=== PATIENT | male | born 1945 | race Caucasian/White ===

== ENCOUNTER 2016-09-12 21:56 | Outpatient (CLI) | payer MEDICARE, BC | END 2016-09-12 21:57 | disposition critical access hospital (66) | DX: R40.4 Transient alteration of awareness (principal) | CPT/HCPCS: A0425; A0427 ==

== ENCOUNTER 2016-09-12 22:08 | Inpatient (IN) | payer MEDICARE, BC ==
--- NOTE | 2016-09-12 22:20 | ED Physician Documentation ---
History of Present Illness - Stated complaint Stated Complaint: LOW BLOOD SUGAR - Chief complaint Chief Complaint: General - History obtained from History obtained from: Patient, EMS - History of Present Illness Timing: Today Pain level max: 0 Pain level now: 0 - Additonal information Additional information: hypoglycemic today. States 17 blood sugar at home. Better with D50 with EMS. Takes glipizide at home. Has not been ill recently. Does have CRF (last cr was 4.2) and is being referred to nephrology. Similar episode occurred 2 weeks ago , metformin was stopped at that time Review of Systems Constitutional: denies: Fever, Chills Throat: denies: Sore throat Cardiac: denies: Chest pain / pressure GI: denies: Nausea, Vomiting, Diarrhea Skin: denies: Rash Musculoskeletal: denies: Neck pain, Back pain Neurologic: denies: Focal weakness, Numbness, Headache PD PAST MEDICAL HISTORY - Past Medical History Past Medical History: Yes Cardiovascular: Hypertension, High cholesterol, Atrial fibrillation Respiratory: Shortness of breath Endocrine/Autoimmune: Type 2 diabetes Other Past Medical History: elevated creatinine 4.2 - Past Surgical History Past Surgical History: Yes Ortho: Arthroscopic surgery - Present Medications Home Medications: Ambulatory Orders Medication Instructions Recorded Confirmed Allopurinol 300 mg DAILY 09/12/16 09/12/16 Atenolol 100 mg DAILY 09/12/16 09/12/16 Atorvastatin [Lipitor] 40 mg DAILY 09/12/16 09/12/16 Digoxin 250 mcg DAILY 09/12/16 09/12/16 Furosemide 80 mg DAILY 09/12/16 09/12/16 Glipizide [Glipizide ER] 5 mg DAILY 09/12/16 09/12/16 Levothyroxine Sodium [Synthroid] 50 mcg DAILY 09/12/16 09/12/16 Liothyronine [Cytomel] 5 mcg DAILY 09/12/16 09/12/16 Lisinopril 5 mg DAILY 09/12/16 09/12/16 Potassium Chloride 20 meq DAILY 09/12/16 09/12/16 Warfarin [Coumadin] 5 mg DAILY 09/12/16 09/12/16 - Allergies Allergies/Adverse Reactions: Allergies Allergy/AdvReac Type Severity Reaction Status Date / Time No Known Drug Allergies Allergy Verified 09/12/16 22:12 - Social History Does the pt smoke?: No Smoking Status: Never smoker Does the pt drink ETOH?: Yes Does the pt have substance abuse?: No PD ED PE NORMAL - Vitals Vital signs reviewed: Yes - General General: Alert and oriented X 3, No acute distress - HEENT HEENT: Moist mucous membranes - Neck Neck: Supple, no meningeal sign - Cardiac Cardiac: RRR - Respiratory Respiratory: No respiratory distress, Clear bilaterally - Abdomen Abdomen: Soft, Non tender - Back Back: No spinal TTP - Derm Derm: Warm and dry - Neuro Neuro: Alert and oriented X 3, oncology social worker 2-12 intact, No motor deficit, No sensory deficit, Normal speech - Psych Psych: Normal mood, Normal affect Results - Vitals Vitals: Vital Signs - 24 hr 09/12/16 09/12/16 22:09 23:09 Temperature 36.4 C L Heart Rate 89 62 Respiratory 18 16 Rate Blood Pressure 128/72 132/72 H O2 Saturation 98 98 Oxygen O2 Source Room air - Labs Labs: Laboratory Tests 09/12/16 09/12/16 09/12/16 22:14 22:40 22:40 WBC 7.7 RBC 3.02 L Hgb 9.8 L Hct 29.8 L MCV 98.5 H MCH 32.4 H MCHC 32.8 RDW 16.2 H Plt Count 177 MPV 10.5 Neut # 5.6 Lymph # 1.3 L [place] # 0.6 Eos # 0.1 Baso # 0.1 Absolute Nucleated RBC 0.01 Nucleated RBCs 0.1 PT 47.6 H INR 4.2 H Sodium Potassium Chloride Carbon Dioxide Anion Gap BUN Creatinine Estimated GFR (MDRD) Glucose POC Whole Bld Glucose 97 Calcium Total Bilirubin AST ALT Alkaline Phosphatase Total Protein Albumin Globulin Albumin/Globulin Ratio Lipase Urine Color Urine Clarity Urine pH Ur Specific [place] Urine Protein Urine Glucose (UA) Urine Ketones Urine Occult Blood Urine Nitrite Urine Bilirubin Urine Urobilinogen Ur Leukocyte Esterase Ur Microscopic Review Urine Culture Comments Last Dose Date Last Dose Time Digoxin Ethyl Alcohol 09/12/16 09/12/16 09/12/16 22:40 22:40 23:29 WBC RBC Hgb Hct MCV MCH MCHC RDW Plt Count MPV Neut # Lymph # [place] # Eos # Baso # Absolute Nucleated RBC Nucleated RBCs PT INR Sodium 136 Potassium 5.3 H Chloride 103 Carbon Dioxide 22 Anion Gap 11.0 BUN 89 H* Creatinine 3.0 H Estimated GFR (MDRD) 21 L Glucose 62 L POC Whole Bld Glucose 20 L* Calcium 8.8 Total Bilirubin 0.4 AST 24 ALT 25 Alkaline Phosphatase 179 H Total Protein 7.5 Albumin 3.6 Globulin 3.9 Albumin/Globulin Ratio 0.9 L Lipase 76 H Urine Color Urine Clarity Urine pH Ur Specific [place] Urine Protein Urine Glucose (UA) Urine Ketones Urine Occult Blood Urine Nitrite Urine Bilirubin Urine Urobilinogen Ur Leukocyte Esterase Ur Microscopic Review Urine Culture Comments Last Dose Date UNK Last Dose Time UNK Digoxin 1.1 Ethyl Alcohol 77.0 09/12/16 09/12/16 23:42 23:47 WBC RBC Hgb Hct MCV MCH MCHC RDW Plt Count MPV Neut # Lymph # [place] # Eos # Baso # Absolute Nucleated RBC Nucleated RBCs PT INR Sodium Potassium Chloride Carbon Dioxide Anion Gap BUN Creatinine Estimated GFR (MDRD) Glucose POC Whole Bld Glucose 113 H Calcium Total Bilirubin AST ALT Alkaline Phosphatase Total Protein Albumin Globulin Albumin/Globulin Ratio Lipase Urine Color YELLOW Urine Clarity CLEAR Urine pH 5.5 Ur Specific [place] 1.010 Urine Protein NEGATIVE Urine Glucose (UA) NEGATIVE Urine Ketones NEGATIVE Urine Occult Blood NEGATIVE Urine Nitrite NEGATIVE Urine Bilirubin NEGATIVE Urine Urobilinogen 0.2 (NORMAL) Ur Leukocyte Esterase NEGATIVE Ur Microscopic Review NOT INDICATED Urine Culture Comments NOT INDICATED Last Dose Date Last Dose Time Digoxin Ethyl Alcohol PD MEDICAL DECISION MAKING - ED course Complexity details: reviewed results, re-evaluated patient, considered differential, d/w patient, d/w outbound sales consultant ED course: Patient is a 71-year-old male who presents to the emergency department after being hypoglycemic earlier today. He had recurrent hypoglycemia here despite eating and had to have another amp of D50. D5 was then started as D10 was not available. Will place the patient in observation overnight for further evaluation and monitoring of his blood sugar. Discussed the case with Dr. Downing, hospitalist who accepts. This document was made in part using voice recognition software. While efforts are made to proofread this document, sound alike and grammatical errors may occur. Departure - Departure Disposition: ED Place in Observation Clinical Impression: Hypoglycemia Alcohol intoxication Qualifiers: Complication of substance-induced condition: uncomplicated Qualified Code(s): F10.120 - Alcohol abuse with intoxication, uncomplicated Condition: Stable Discharge Date/Time: 09/13/16 00:25
[2016-09-12 22:50] LABS: BASOPHILS # (AUTO) 0.1 10^3/uL (0.0-0.1); BASOPHILS % (AUTO) 1.8 %; EOSINOPHILS # (AUTO) 0.1 10^3/uL (0.0-0.7); EOSINOPHILS % (AUTO) 1.5 %; HCT - HEMATOCRIT 29.8 % (42.0-52.0); HGB - HEMOGLOBIN 9.8 g/dL (14.0-18.0); LYMPHOCYTES # (AUTO) 1.3 10^3/uL (1.5-3.5); LYMPHOCYTES % (AUTO) 16.2 %; MEAN CORPUSCULAR HEMOGLOBIN 32.4 pg (27.0-31.0); MEAN CORPUSCULAR HGB CONC 32.8 g/dL (32.0-36.0); MEAN CORPUSCULAR VOLUME 98.5 fL (80.0-94.0); MEAN PLATELET VOLUME 10.5 fL (7.4-11.4); MONOCYTES # (AUTO) 0.6 10^3/uL (0.0-1.0); MONOCYTES % (AUTO) 7.9 %; NEUTROPHILS # (AUTO) 5.6 10^3/uL (1.5-6.6); NEUTROPHILS % (AUTO) 72.6 %; NUCLEATED RED BLOOD CELLS AUTO 0.1 /100WBC; RED BLOOD COUNT 3.02 10^6/uL (4.70-6.10); RED CELL DISTRIBUTION WIDTH 16.2 % (12.0-15.0); UNCORRECTED WHITE BLOOD COUNT 7.7 x10^3/uL; WHITE BLOOD COUNT 7.7 x10^3/uL (4.8-10.8)
[2016-09-12 22:58] LABS: INR 4.2 (0.8-1.2); PT - PROTHROMBIN TIME 47.6 secs (9.9-12.6)
[2016-09-12 23:08] LABS: ALBUMIN/GLOBULIN RATIO 0.9 (1.0-2.2); BILIRUBIN,TOTAL 0.4 mg/dL (0.2-1.0); CALCIUM 8.8 mg/dL (8.5-10.3); CARBON DIOXIDE - CO2 22 mmol/L (21-32); CHLORIDE 103 mmol/L (101-111); GFR - MDRD 21 (>89); GLUCOSE 62 mg/dL (70-100); LIPASE 76 U/L (22-51); POTASSIUM 5.3 mmol/L (3.5-5.0); SODIUM 136 mmol/L (135-145); TOTAL PROTEIN 7.5 g/dL (6.7-8.2)
[2016-09-12] MEDS ORDERED: DEXTROSE 5%-0.45% NACL 1,000 ML IV ONE (23:30)
[2016-09-12] MEDS ORDERED: DEXTROSE 50% ABBOJECT 25 GM/50 ML SYRINGE ONE (23:30)
[2016-09-12] MEDS ORDERED: DEXTROSE 50% ABBOJECT 25 GM/50 ML SYRINGE IVP STA (23:30)
[2016-09-12 23:56] LABS: BILIRUBIN,URINE NEGATIVE (NEGATIVE); PH,URINE 5.5 PH (5.0-7.5)
[2016-09-12 23:58] LABS: UA CHARGE (STRIP ONLY) YES; UR CULTURE IF IND NOT INDICATED
[2016-09-13] MEDS ORDERED: ACETAMINOPHEN 325 MG TABLET PO PRN (00:07)
[2016-09-13] MEDS ORDERED: SODIUM CHLORIDE FLUSH 0.9% 10 ML SYRINGE IVP PRN (00:07)
[2016-09-13] MEDS ORDERED: THIAMINE 100 MG TABLET PO STA ×2 (00:27→03:34)
[2016-09-13] MEDS ORDERED: FOLIC ACID 1 MG TABLET PO SCH (01:00)
[2016-09-13] MEDS ORDERED: DEXTROSE 10% 1,000 ML IV SCH ×2 (01:00→05:29)
[2016-09-13] MEDS ORDERED: DEXTROSE 5%-0.9% NACL 1,000 ML IV SCH (01:00)
--- NOTE | 2016-09-13 01:42 | XRAY Preliminary Report ---
Exam: XR Chest 2 View PA/LAT IMPRESSION: Small right pleural effusion. Right lower lobe opacities which may be secondary to atelec tasis and/or superimposed airspace disease. [facility] SITE ID: [id number]
--- NOTE | 2016-09-13 01:44 | XRAY Report ---
EXAM: CHEST RADIOGRAPHY EXAM DATE: 09/13/2016 12:53 AM. CLINICAL HISTORY: [place]. COMPARISON: None. TECHNIQUE: 2 views. FINDINGS: Lungs/Pleura: Small right pleural effusion. Ill-defined airspace opacities at the right lung base. Th e left lung is clear. No pneumothorax.. Mediastinum: Heart and mediastinal contours are unremarkable. Other: None. IMPRESSION: Small right pleural effusion. Right lower lobe opacities which may be secondary to atelec tasis and/or superimposed airspace disease. [facility] Referring Provider Line: [phone] SITE ID: [id number]
--- NOTE | 2016-09-13 04:43 | HISTORY & PHYSICAL EXAMINATION ---
DATE OF OBSERVATION: 09/13/2016. PRIMARY CARE PHYSICIAN: Dr. Esteban Romero, [facility]. CHIEF COMPLAINT: Significantly low blood sugar. HISTORY OF PRESENT ILLNESS: This is a 71-year-old male who has a history of type 2 diabetes. Of note, he was found to have subacute renal failure, is to see Nephrology later in September for further evaluation. The patient denies having a renal ultrasound or other evaluation for this. The last creatinine was noted to be 4.2, that was a few weeks ago. He also had an episode about 2 weeks ago while he was visiting in [place] of low blood sugar. Was seen in the emergency room. Eventually blood sugar came up and he was sent home. His primary care provider about a week ago stopped his metformin because of this, but kept him the glipizide. The patient had a blood sugar today of 17 and EMS was notified and brought in. He was continuing to have in spite of multiple meals and D50, dropping of blood sugar. Hence, the patient is admitted to observation status. The patient does have a history of chronic atrial fibrillation, for which he is on warfarin therapy. He also does note that over the past 2 months or so, he has been a little bit more short of breath with a little bit more lower extremity swelling noted. PAST MEDICAL HISTORY: Hypertension, hyperlipidemia, chronic atrial fibrillation for which he is on warfarin therapy, subacute renal insufficiency, unclear etiology, history of type 2 diabetes, history of arthroscopic surgery, history of gout. MEDICATIONS UPON ADMISSION 1. Lasix 80 mg p.o. daily. 2. Glipizide 5 mg p.o. daily. 3. Lisinopril 5 mg p.o. daily. 4. KCl 20 mEq p.o. daily. 5. Warfarin 5 mg p.o. daily. 6. Allopurinol 300 mg p.o. daily. 7. Atenolol 100 mg p.o. daily. 8. Atorvastatin 40 mg p.o. daily. 9. Digoxin 250 mcg p.o. daily. 10. Levothyroxine 50 mcg p.o. daily. 11. Liothyronine 5 mcg p.o. daily. ALLERGIES: NO KNOWN DRUG ALLERGIES. SOCIAL HISTORY: Lives in , lives in [place], but spends part his time on [facility] where he has a house also. Smoking, never. Alcohol, yes, 3-4 drinks daily for many years. FAMILY MEDICAL HISTORY: No family history of diabetes or coronary artery disease. REVIEW OF SYSTEMS: Denies fevers, chills. Denies cough. Does admit to some shortness of breath. Denies any chest pain. All other review of systems are negative except for as in HPI. PHYSICAL EXAMINATION VITAL SIGNS: Reveals temperature is afebrile, heart rate is 62, blood pressure 132/72, respiratory rate is 16, room air saturation 98%. CONSTITUTIONAL: Elderly male in no acute distress, morbidly obese. HEAD: Normocephalic, atraumatic. EYES: PERRLA-DC, EOMI. MOUTH: No lesions. NECK: No adenopathy. No lesions. CHEST: Some crackles at his bases. COR: Regular rate and rhythm, S1, S2. ABDOMEN: Soft, nontender. Bowel sounds present. EXTREMITIES: Reveals 1+ lower extremity edema. SKIN: Reveals some bilateral lower extremity stasis dermatitis changes, otherwise no rashes. PSYCHIATRIC: Mood and affect are appropriate. NEUROLOGIC: Alert and oriented x3. Motor strength is intact bilaterally. LABORATORY DATA: As above, also to include Digoxin level 1.1. Alcohol level 77.0. Urine is specific gravity 1.010, otherwise negative. Sodium is 136, potassium 5.3, chloride 103, bicarbonate 22, anion gap 11, BUN 89, creatinine 3.0, calculated GFR is 21, glucose is 62, dropped down to 20, calcium 8.8, total bilirubin 0.4, AST 24, ALT 25, alkaline phosphatase 179, total protein 7.5 , albumin 3.6, lipase 76, INR is 4.2. White count 7.7, hemoglobin 9.8, hematocrit 29.8, MCV 98.5. Platelets 177, 5.6 neutrophils. Two-view chest x-ray is pending. EKG is pending. ASSESSMENT AND PLAN 1. Hypoglycemia, acute, present on admission. We will go ahead and discontinue his glipizide and start IV D5 normal saline along with D10 and check glucoses q.2h. and adjust accordingly. Most likely due to his renal failure and glipizide therapy, he is dropping his blood sugars. 2. Subacute renal failure, present on admission. UA is negative. We will go ahead and check renal ultrasound to further elucidate. We will also hold his Lasix for now, along with his lisinopril and give some IV fluid hydration and recheck labs in the a.m. 3. ETOH dependence, chronic, present on admission. We will go ahead and replete with multiple vitamins, thiamine and folic acid. Monitor for signs and symptoms of alcohol withdrawal. Counseled regarding cessation of alcohol. 4. Chronic atrial fibrillation, chronic, present on admission. Place on telemetry. Monitor rate and rhythm. Check EKG. We will hold Coumadin as INR is supratherapeutic at this point. Will recheck it in a.m. 5. Hypothyroidism, chronic, present on admission. Check TSH, free T4, free T3. 6. Hypertension, chronic, present on admission. Monitor blood pressures. May need to replace lisinopril with alternative. 7. Anemia, present on admission. Guaiac stools. Check iron, vitamin B12, folate levels. May be secondary to renal insufficiency. 8. Deep venous thrombosis prophylaxis. The patient is on therapeutic Coumadin. 9. Code status. The patient is FULL CODE. TIME SPENT: 60 minutes. JOB #: [id number] EXT JOB #:[id number] ROSSANA
[2016-09-13 05:55] LABS: BUN - BLOOD UREA NITROGEN 89 mg/dL (6-20)
[2016-09-13 06:10] LABS: BASOPHILS % (AUTO) 0.5 %; EOSINOPHILS # (AUTO) 0.1 10^3/uL (0.0-0.7); EOSINOPHILS % (AUTO) 2.1 %; HCT - HEMATOCRIT 26.9 % (42.0-52.0); LYMPHOCYTES # (AUTO) 1.3 10^3/uL (1.5-3.5); LYMPHOCYTES % (AUTO) 20.6 %; MEAN CORPUSCULAR HEMOGLOBIN 32.5 pg (27.0-31.0); MEAN CORPUSCULAR HGB CONC 33.4 g/dL (32.0-36.0); MEAN CORPUSCULAR VOLUME 97.2 fL (80.0-94.0); MEAN PLATELET VOLUME 10.5 fL (7.4-11.4); MONOCYTES # (AUTO) 0.7 10^3/uL (0.0-1.0); MONOCYTES % (AUTO) 10.6 %; NEUTROPHILS # (AUTO) 4.3 10^3/uL (1.5-6.6); NEUTROPHILS % (AUTO) 66.2 %; RED BLOOD COUNT 2.77 10^6/uL (4.70-6.10); RED CELL DISTRIBUTION WIDTH 15.9 % (12.0-15.0); UNCORRECTED WHITE BLOOD COUNT 6.5 x10^3/uL; WHITE BLOOD COUNT 6.5 x10^3/uL (4.8-10.8)
[2016-09-13 06:15] LABS: INR 4.1 (0.8-1.2); PT - PROTHROMBIN TIME 47.1 secs (9.9-12.6)
[2016-09-13 06:23] LABS: CALCIUM 8.4 mg/dL (8.5-10.3); CREATININE 2.7 mg/dL (0.6-1.2); POTASSIUM 5.5 mmol/L (3.5-5.0)
[2016-09-13 06:24] LABS: IRON 46 ug/dL (45-182); TOTAL IRON BINDING CAPACITY 399 ug/dL (250-450); TRANSFERRIN 285 mg/dL (180-329)
[2016-09-13 06:51] LABS: FOLATE 16.17 ng/mL (5.90 - >24.8)
[2016-09-13] MEDS ORDERED: CYANOCOBALAMIN 1,000 MCG/ML VIAL IM ONE ×2 (07:03→10:30)
[2016-09-13] MEDS ORDERED: LORazepam 2 MG/ML SYRINGE IVP PRN (07:05)
[2016-09-13 07:24] LABS: CHOL/HDL RATIO 2.5 (<5.0); CHOLESTEROL 102 mg/dL; HDL CHOLESTEROL 41 mg/dL; LDL/HDL RATIO 1.2 (<3.6); TRIGLYCERIDES 63 mg/dL; VLDL CHOLESTEROL 13 mg/dL
[2016-09-13 07:35] LABS: MAGNESIUM 2.4 mg/dL (1.7-2.8); PHOSPHORUS 4.3 mg/dL (2.5-4.6)
[2016-09-13] MEDS ORDERED: MULTIVITAMIN W/MINERALS TABLET PO SCH (08:00)
[2016-09-13] MEDS: SODIUM CHLORIDE FLUSH 0.9% 10 ML SYRINGE IVP SCH ×3 (08:01→20:37)
[2016-09-13 08:05] LABS: BILIRUBIN,URINE NEGATIVE (NEGATIVE)
[2016-09-13 08:08] LABS: UA CHARGE (STRIP ONLY) YES
[2016-09-13] MEDS ORDERED: NON FORMULARY MED (Atenolol [Atenolol] 100 MG) PO SCH (09:00)
[2016-09-13] MEDS ORDERED: DIGOXIN 250 MCG PO SCH (09:00)
[2016-09-13] MEDS ORDERED: DIGOXIN 125 MCG TABLET PO SCH (09:00)
[2016-09-13] MEDS ORDERED: NON FORMULARY MED (Allopurinol [Allopurinol] 300 MG) PO SCH (09:00)
[2016-09-13] MEDS ORDERED: NON FORMULARY MED (Levothyroxine Sodium [Synthroid] 50 MCG) PO SCH (09:00)
[2016-09-13] MEDS ORDERED: ALLOPURINOL 100 MG TABLET PO SCH (09:00)
[2016-09-13] MEDS ORDERED: ATORVASTATIN 40 MG TABLET PO SCH (09:00)
[2016-09-13] MEDS ORDERED: MULTIVITAMIN 10 ML, THIAMINE INJ 100 MG, FOLIC ACID INJ 1 MG in D5.45NS W/20 MEQ KCL 1,... IV SCH (09:00)
[2016-09-13] MEDS ORDERED: THIAMINE 100 MG TABLET PO SCH (09:00)
[2016-09-13] MEDS: POLYETHYLENE GLYCOL 3350 17 GM PACKET PO SCH (09:24)
[2016-09-13] MEDS: LEVOTHYROXINE 25 MCG TABLET PO SCH (09:56)
[2016-09-13] MEDS: LIOTHYRONINE 5 MCG TABLET PO SCH (09:56)
[2016-09-13] MEDS: ATENOLOL 25 MG TABLET PO SCH (09:56)
[2016-09-13] MEDS ORDERED: MULTIVITAMIN 10 ML, THIAMINE INJ 100 MG, FOLIC ACID INJ 1 MG in SODIUM CHLORIDE 0.9% 1,... IV SCH (10:00)
--- NOTE | 2016-09-13 10:26 | Ultrasound Preliminary Report ---
Exam: US Retroperitoneal IMPRESSION: No hydronephrosis [facility] SITE ID: [id number]
--- NOTE | 2016-09-13 10:29 | Ultrasound Report ---
EXAM: RENAL ULTRASOUND EXAM DATE: 09/13/2016 09:25 AM. CLINICAL HISTORY: Kidney failure with poss obstruction. COMPARISON: None. TECHNIQUE: Real-time scanning was performed with static images obtained. FINDINGS: Right Kidney: 12.5 cm. Normal echotexture with no stones, contour-deforming masses, or hydronephrosi s. Left Kidney: 11.8 cm. Normal echotexture with no stones, suspicious contour-deforming masses, or hydr onephrosis. Upper pole 1.5 x 1.4 x 1.4 cm cyst. Bladder: Bilateral jets seen. The prevoid bladder volume was 453 cc. Prostate is mildly prominent measuring 4.3 x 3.9 x 4.2 cm with volume of 36.8 cc with some calcificat ions within it. IMPRESSION: No hydronephrosis [facility] Referring Provider Line: [phone] SITE ID: [id number]
--- NOTE | 2016-09-13 10:31 | PROVIDER PROGRESS NOTE ---
Assessment/Plan - Problem List (1) Acute kidney injury superimposed on chronic kidney disease Assessment/Plan: acute. improving with CKD stage 3. GFR is now <30. has mild dehydration probably related to alcohol abuse and outside in the sun and not drinking adequate fluids. has good output now. creatinine improving. checking CPK and renal ultrasound shows no obstruction or hydronephrosis. (2) Alcohol abuse with alcohol-induced disorder Assessment/Plan: improving. patient drinks approx 4 drinks nightly of whiskey and coke. He was outside drinking yesterday and became dehydrated and SHAWN. continue with IVF NS hydration and Banana bag IV x 1. monitor kidney function and check for rhabdomyosis with CKMB. monitor output. pending renal ultrasound. provide alcohol cessation education. CIWA protocol with ativan IV. seizure precautions (3) Acute hyperkalemia Assessment/Plan: acute. probable to dehydration and alcohol usage. IVF for gentle hydration and rule out rhabdo. has CKD. continue to monitor kidney function and recheck potassium level Q12 and in morning lab draw. Patient is on digoxin as well. - Current Meds Current Meds: Current Medications Generic Name Dose Route Start Last Admin Trade Name Eribertoq PRN Reason Stop Dose Admin Atenolol 100 mg 09/13/16 09:00 09/13/16 09:56 Tenormin PO 100 mg DAILY ALICIA Administration Cyanocobalamin 1,000 mcg 09/13/16 10:30 09/13/16 09:57 Vitamin B-12 IM 09/13/16 10:31 1,000 mcg ONCE ONE Administration Digoxin 250 mcg 09/13/16 09:00 09/13/16 09:56 Lanoxin PO 250 mcg DAILY ALICIA Administration Multivitamins 10 ml/ Thiamine 1,011.2 mls @ 100 mls/hr 09/13/16 10:00 09/13/16 09:57 HCl 100 mg/ Folic Acid 1 mg/ IV 100 mls/hr Sodium Chloride DAILY ALICIA Administration Levothyroxine Sodium 50 mcg 09/13/16 07:00 09/13/16 09:56 Synthroid PO 50 mcg QDAC ALICIA Administration Liothyronine Sodium 5 mcg 09/13/16 07:00 09/13/16 09:56 Cytomel PO 5 mcg QDAC ALICIA Administration Polyethylene Glycol 17 gm 09/13/16 09:00 09/13/16 09:24 Miralax PO Not Given DAILY ALICIA Sodium Chloride 10 ml 09/13/16 06:00 09/13/16 08:01 Normal Saline Flush 0.9% IVP Not Given Q8HR ALICIA - Lab Result Lab results reviewed: Yes Fish Bone Diagrams: 09/13/16 05:35 09/13/16 05:35 Other Lab Results: Abnormal Lab Results 09/12/16 09/12/16 09/12/16 22:40 22:40 22:40 RBC 3.02 10^6/uL L 10^6/uL (4.70-6.10) Hgb 9.8 g/dL L g/dL (14.0-18.0) Hct 29.8 % L % (42.0-52.0) MCV 98.5 fL H fL (80.0-94.0) MCH 32.4 pg H pg (27.0-31.0) RDW 16.2 % H % (12.0-15.0) Lymph # 1.3 10^3/uL L 10^3/uL (1.5-3.5) PT 47.6 secs H secs (9.9-12.6) INR 4.2 H (0.8-1.2) Potassium 5.3 mmol/L H mmol/L (3.5-5.0) BUN 89 mg/dL H* mg/dL (6-20) Creatinine 3.0 mg/dL H mg/dL (0.6-1.2) Estimated GFR (MDRD) 21 L (>89) Glucose 62 mg/dL L mg/dL (70-100) POC Whole Bld Glucose Calcium % Saturation Alkaline Phosphatase 179 IU/L H IU/L (42-121) B-Natriuretic Peptide Albumin/Globulin Ratio 0.9 L (1.0-2.2) HDL Cholesterol Lipase 76 U/L H U/L (22-51) 09/12/16 09/12/16 09/13/16 23:29 23:47 03:20 RBC Hgb Hct MCV MCH RDW Lymph # PT INR Potassium BUN Creatinine Estimated GFR (MDRD) Glucose POC Whole Bld Glucose 20 mg/dL L* mg/dL 113 mg/dL H mg/dL 164 mg/dL H mg/dL (70 - 100) (70 - 100) (70 - 100) Calcium % Saturation Alkaline Phosphatase B-Natriuretic Peptide Albumin/Globulin Ratio HDL Cholesterol Lipase 09/13/16 09/13/16 09/13/16 05:35 05:35 05:35 RBC 2.77 10^6/uL L 10^6/uL (4.70-6.10) Hgb 9.0 g/dL L g/dL (14.0-18.0) Hct 26.9 % L % (42.0-52.0) MCV 97.2 fL H fL (80.0-94.0) MCH 32.5 pg H pg (27.0-31.0) RDW 15.9 % H % (12.0-15.0) Lymph # 1.3 10^3/uL L 10^3/uL (1.5-3.5) PT 47.1 secs H secs (9.9-12.6) INR 4.1 H (0.8-1.2) Potassium 5.5 mmol/L H mmol/L (3.5-5.0) BUN 87 mg/dL H* mg/dL (6-20) Creatinine 2.7 mg/dL H mg/dL (0.6-1.2) Estimated GFR (MDRD) 23 L (>89) Glucose 183 mg/dL H mg/dL (70-100) POC Whole Bld Glucose Calcium 8.4 mg/dL L mg/dL (8.5-10.3) % Saturation Alkaline Phosphatase B-Natriuretic Peptide Albumin/Globulin Ratio HDL Cholesterol Lipase 09/13/16 09/13/16 09/13/16 05:35 05:35 05:35 RBC Hgb Hct MCV MCH RDW Lymph # PT INR Potassium BUN Creatinine Estimated GFR (MDRD) Glucose POC Whole Bld Glucose Calcium % Saturation 12 % L % (20-50) Alkaline Phosphatase B-Natriuretic Peptide 129 pg/mL H pg/mL (5-100) Albumin/Globulin Ratio HDL Cholesterol 41 mg/dL L mg/dL (60 - ) Lipase 09/13/16 09/13/16 05:41 07:05 RBC Hgb Hct MCV MCH RDW Lymph # PT INR Potassium BUN Creatinine Estimated GFR (MDRD) Glucose POC Whole Bld Glucose 166 mg/dL H mg/dL 170 mg/dL H mg/dL (70 - 100) (70 - 100) Calcium % Saturation Alkaline Phosphatase B-Natriuretic Peptide Albumin/Globulin Ratio HDL Cholesterol Lipase - EKG Results EKG Interpreted Independently: No - Diagnostic Imaging Results Diagnostic Imaging Results: positive: Prelim report reviewed Diagnostic Imaging Results Comments: Retroperitoneal Ultrasound Impression: Echo: Impression - Additional Planning Condition/Complexity: Stable My Orders: My Active Orders 09/13/16 08:42 Retroperitoneal [US] Stat 09/13/16 10:00 Multivitamin [Infuvite] 10 ml Thiamine Inj [Vitamin B-1 Inj] 100 mg Folic Acid Inj 1 mg Sodium Chloride 0.9% [Normal Saline 0.9%] 1,000 ml IV DAILY 09/13/16 10:22 CKMB [CREATINE KINASE MB] [IAI] Stat 09/13/16 10:30 Cyanocobalamin [Vitamin B-12] 1,000 mcg IM ONCE ONE 09/13/16 11:00 Sodium Chloride 0.9% [Normal Saline 0.9%] 1,000 ml IV 83.333 mls/hr 09/13/16 17:00 POTASSIUM [CHEM] Timed 09/13/16 Lunch Carb-controlled Diet [DIET] Plan Discussed with:: Patient, Case Management Time Spent: 31-60 minutes Subjective - Subjective Patient Reports: Resting Comfortably, No Complaints, Shortness of Breath Nursing Reports: No Complaints (only with exertion) Objective I&O (Last 24 Hrs): Intake and Output Totals x24h 09/11/16 09/12/16 09/13/16 23:59 23:59 23:59 Intake Total 1188 Output Total 500 Balance 688 General: Alert, Oriented x3, Cooperative, No acute distress HEENT: PERRLA Neck: Supple, No JVD Neuro: Alert, CN 2-12 Grossly Intact, Oriented Times 3 Cardiovascular: Normal S1, Normal S2, No murmurs Respiratory: No respiratory distress, Breath sounds nml Abdomen: Normal bowel sounds, No masses, Other (obese) Rectal: Stool - Heme NEG Extremities: No clubbing, No cyanosis, No edema, Normal pulses Skin: No rashes, No breakdown, No significant lesion Comments/Notes: darkened with bronze appearance after being in sun - Results Results: Laboratory Results WBC 6.5 x10^3/uL (4.8-10.8) 09/13/16 05:35 RBC 2.77 10^6/uL (4.70-6.10) L 09/13/16 05:35 Hgb 9.0 g/dL (14.0-18.0) L 09/13/16 05:35 Hct 26.9 % (42.0-52.0) L 09/13/16 05:35 MCV 97.2 fL (80.0-94.0) H 09/13/16 05:35 MCH 32.5 pg (27.0-31.0) H 09/13/16 05:35 MCHC 33.4 g/dL (32.0-36.0) 09/13/16 05:35 RDW 15.9 % (12.0-15.0) H 09/13/16 05:35 Plt Count 153 10^3/uL (130-450) 09/13/16 05:35 MPV 10.5 fL (7.4-11.4) 09/13/16 05:35 Neut # 4.3 10^3/uL (1.5-6.6) 09/13/16 05:35 Lymph # 1.3 10^3/uL (1.5-3.5) L 09/13/16 05:35 [place] # 0.7 10^3/uL (0.0-1.0) 09/13/16 05:35 Eos # 0.1 10^3/uL (0.0-0.7) 09/13/16 05:35 Baso # 0.0 10^3/uL (0.0-0.1) 09/13/16 05:35 Absolute Nucleated RBC 0.00 x10^3/uL 09/13/16 05:35 Nucleated RBCs 0.0 /100WBC 09/13/16 05:35 PT 47.1 secs (9.9-12.6) H 09/13/16 05:35 INR 4.1 (0.8-1.2) H 09/13/16 05:35 Sodium 135 mmol/L (135-145) 09/13/16 05:35 Potassium 5.5 mmol/L (3.5-5.0) H 09/13/16 05:35 Chloride 106 mmol/L (101-111) 09/13/16 05:35 Carbon Dioxide 22 mmol/L (21-32) 09/13/16 05:35 Anion Gap 7.0 (6-13) 09/13/16 05:35 BUN 87 mg/dL (6-20) H* 09/13/16 05:35 Creatinine 2.7 mg/dL (0.6-1.2) H 09/13/16 05:35 Estimated GFR (MDRD) 23 (>89) L 09/13/16 05:35 Glucose 183 mg/dL (70-100) H 09/13/16 05:35 POC Whole Bld Glucose 170 mg/dL (70 - 100) H 09/13/16 07:05 Calcium 8.4 mg/dL (8.5-10.3) L 09/13/16 05:35 Phosphorus 4.3 mg/dL (2.5-4.6) 09/13/16 05:35 Magnesium 2.4 mg/dL (1.7-2.8) 09/13/16 05:35 Iron 46 ug/dL (45-182) 09/13/16 05:35 TIBC 399 ug/dL (250-450) 09/13/16 05:35 % Saturation 12 % (20-50) L 09/13/16 05:35 Transferrin 285 mg/dL (180-329) 09/13/16 05:35 Total Bilirubin 0.4 mg/dL (0.2-1.0) 09/12/16 22:40 AST 24 IU/L (10-42) 09/12/16 22:40 ALT 25 IU/L (10-60) 09/12/16 22:40 Alkaline Phosphatase 179 IU/L (42-121) H 09/12/16 22:40 B-Natriuretic Peptide 129 pg/mL (5-100) H 09/13/16 05:35 Total Protein 7.5 g/dL (6.7-8.2) 09/12/16 22:40 Albumin 3.6 g/dL (3.2-5.5) 09/12/16 22:40 Globulin 3.9 g/dL (2.1-4.2) 09/12/16 22:40 Albumin/Globulin Ratio 0.9 (1.0-2.2) L 09/12/16 22:40 Triglycerides 63 mg/dL (-149) 09/13/16 05:35 Cholesterol 102 mg/dL (-199) 09/13/16 05:35 LDL Cholesterol, Calc 48 mg/dL (-129) 09/13/16 05:35 VLDL Cholesterol 13 mg/dL 09/13/16 05:35 HDL Cholesterol 41 mg/dL (60-) L 09/13/16 05:35 LDL/HDL Ratio 1.2 (<3.6) 09/13/16 05:35 Cholesterol/HDL Ratio 2.5 (<5.0) 09/13/16 05:35 Lipase 76 U/L (22-51) H 09/12/16 22:40 Vitamin B12 323 pg/mL (180-914) 09/13/16 05:35 Folate 16.17 ng/mL (5.90 - >24.8) 09/13/16 05:35 TSH 1.00 uIU/mL (0.34-5.60) 09/13/16 05:35 Free T4 0.73 ng/dL (0.58-1.64) 09/13/16 05:35 Free T3 pg/mL 2.82 pg/mL (2.5-3.9) 09/13/16 05:35 Urine Color YELLOW 09/13/16 07:45 Urine Clarity CLEAR (CLEAR) 09/13/16 07:45 Urine pH 6.0 PH (5.0-7.5) 09/13/16 07:45 Ur Specific [place] 1.010 (1.002-1.030) 09/13/16 07:45 Urine Protein NEGATIVE mg/dL (NEGATIVE) 09/13/16 07:45 Urine Glucose (UA) NEGATIVE mg/dL (NEGATIVE) 09/13/16 07:45 Urine Ketones NEGATIVE mg/dL (NEGATIVE) 09/13/16 07:45 Urine Occult Blood NEGATIVE (NEGATIVE) 09/13/16 07:45 Urine Nitrite NEGATIVE (NEGATIVE) 09/13/16 07:45 Urine Bilirubin NEGATIVE (NEGATIVE) 09/13/16 07:45 Urine Urobilinogen 0.2 (NORMAL) E.U./dL (NORMAL) 09/13/16 07:45 Ur Leukocyte Esterase NEGATIVE (NEGATIVE) 09/13/16 07:45 Ur Microscopic Review NOT INDICATED 09/13/16 07:45 Urine Culture Comments NOT INDICATED 09/12/16 23:42 Last Dose Date UNKNOWN 09/13/16 05:35 Last Dose Time UNKNOWN 09/13/16 05:35 Digoxin 1.3 ng/mL 05/29/17 05:35 Ethyl Alcohol 77.0 mg/dL 09/12/16 22:40 - Procedures Procedures: ultrasound of retroperitoneal with no hydronephrosis of obstruction of the kidneys or bladder
[2016-09-13] MEDS: TAMSULOSIN 0.4 MG CAPSULE PO SCH (11:43)
[2016-09-13] MEDS: SODIUM CHLORIDE 0.9% 1,000 ML IV SCH ×3 (11:43→20:40)
[2016-09-13] MEDS ORDERED: SODIUM POLYSTYRENE SULFONATE 15 GM/60 ML BOTTLE PO SCH (17:16)
[2016-09-13 17:34] LABS: BILIRUBIN,TOTAL 0.4 mg/dL (0.2-1.0); CREATININE 2.7 mg/dL (0.6-1.2); TOTAL PROTEIN 6.7 g/dL (6.7-8.2)
[2016-09-13 17:49] LABS: HEMOGLOBIN A1C 0.39 g/dL
[2016-09-13 17:51] LABS: CALCIUM 8.2 mg/dL (8.5-10.3)
[2016-09-13] MEDS: INSULIN ASPART 300 UNIT/3 ML PEN SUBQ SCH ×2 (17:58→20:36)
[2016-09-13 18:00] LABS: POTASSIUM 6.6 mmol/L (3.5-5.0)
[2016-09-14 05:17] LABS: BASOPHILS # (AUTO) 0.1 10^3/uL (0.0-0.1); BASOPHILS % (AUTO) 0.8 %; EOSINOPHILS # (AUTO) 0.1 10^3/uL (0.0-0.7); EOSINOPHILS % (AUTO) 1.7 %; HCT - HEMATOCRIT 26.7 % (42.0-52.0); HGB - HEMOGLOBIN 8.8 g/dL (14.0-18.0); LYMPHOCYTES # (AUTO) 1.5 10^3/uL (1.5-3.5); LYMPHOCYTES % (AUTO) 20.9 %; MEAN CORPUSCULAR HEMOGLOBIN 32.3 pg (27.0-31.0); MEAN CORPUSCULAR HGB CONC 32.9 g/dL (32.0-36.0); MEAN CORPUSCULAR VOLUME 98.2 fL (80.0-94.0); MONOCYTES # (AUTO) 0.8 10^3/uL (0.0-1.0); MONOCYTES % (AUTO) 10.5 %; NEUTROPHILS # (AUTO) 4.8 10^3/uL (1.5-6.6); NEUTROPHILS % (AUTO) 66.1 %; RED BLOOD COUNT 2.72 10^6/uL (4.70-6.10); RED CELL DISTRIBUTION WIDTH 16.2 % (12.0-15.0); UNCORRECTED WHITE BLOOD COUNT 7.2 x10^3/uL; WHITE BLOOD COUNT 7.2 x10^3/uL (4.8-10.8)
[2016-09-14 05:22] LABS: INR 2.5 (0.8-1.2); PT - PROTHROMBIN TIME 28.6 secs (9.9-12.6)
[2016-09-14 05:32] LABS: ALBUMIN/GLOBULIN RATIO 0.9 (1.0-2.2); BILIRUBIN,TOTAL 0.9 mg/dL (0.2-1.0); CALCIUM 8.6 mg/dL (8.5-10.3); CREATININE 2.2 mg/dL (0.6-1.2); MAGNESIUM 2.2 mg/dL (1.7-2.8); PHOSPHORUS 4.2 mg/dL (2.5-4.6); POTASSIUM 5.1 mmol/L (3.5-5.0); TOTAL PROTEIN 6.7 g/dL (6.7-8.2)
[2016-09-14] MEDS: SODIUM CHLORIDE 0.9% 1,000 ML IV SCH ×3 (06:11→13:43)
[2016-09-14] MEDS: SODIUM CHLORIDE FLUSH 0.9% 10 ML SYRINGE IVP SCH ×2 (06:11→14:05)
[2016-09-14] MEDS: LEVOTHYROXINE 25 MCG TABLET PO SCH (06:16)
[2016-09-14] MEDS: LIOTHYRONINE 5 MCG TABLET PO SCH (06:16)
[2016-09-14] MEDS: INSULIN ASPART 300 UNIT/3 ML PEN SUBQ SCH ×2 (08:26→11:31)
[2016-09-14] MEDS ORDERED: DIGOXIN 125 MCG TABLET PO SCH (08:30)
[2016-09-14] MEDS ORDERED: SODIUM POLYSTYRENE SULFONATE 15 GM/60 ML BOTTLE PO ONE (08:30)
[2016-09-14] MEDS: POLYETHYLENE GLYCOL 3350 17 GM PACKET PO SCH (08:31)
[2016-09-14] MEDS: ATENOLOL 25 MG TABLET PO SCH (08:51)
[2016-09-14] MEDS: TAMSULOSIN 0.4 MG CAPSULE PO SCH (08:54)
[2016-09-14 15:08] LABS: CALCIUM 8.8 mg/dL (8.5-10.3); CREATININE 2.1 mg/dL (0.6-1.2); POTASSIUM 5.1 mmol/L (3.5-5.0)
--- NOTE | 2016-09-14 15:31 | Discharge Plan ---
Discharge Plan Disposition: Home, Self Care Condition: Fair Diet: Diabetic Activity Restrictions: Activity as Tolerated Shower Restrictions: No Driving Restrictions: No Assistance Devices: Cane Weight Bearing: Full Weight Instruction Topics: Diabetes Alcohol Consumption, Addiction Alcohol, Addiction Alcohol Signs Additional Instructions or Follow Up instructions: Please continue to take home medications as prescribed. avoid ALL ALCOHOL products. you are on coumadin and will need to have your INR checked within the next week. You need to contact your primary care doctor for the results of your echocardiogram. Diet: You will need to follow a cardiac low salt diet and more water in your diet. no alcohol. limit caffeine and no soda. Activity: as tolerated and take rest breaks as needed. get sleep at least 7-8 hours nightly Please see your enrollment coordinator for review of your echocardiogram. you have severe pulmoanry hypertension and ascites. You are high risk for heart failure and stroke. You must see your primary care doctor as soon as possible regarding your health status. Your potassium is still high so do not take your potassium tablets for a few days. Drink plenty of water since your kidney function is still poor with creatinine at 2.1 and GFR at 31 Follow-Up Care: Dietitian No Smoking: If you smoke, Please STOP! Call for help.
[2016-09-14 16:23] VITALS: BP 142/72
--- NOTE | 2016-09-15 06:27 | DISCHARGE SUMMARY ---
DATE OF ADMISSION: 09/13/2016 DATE OF DISCHARGE: 09/14/2016 DISCHARGE PROVIDER: Tiarra Shanks APRN ADMITTING DIAGNOSES: 1. Hypoglycemia. 2. Acute kidney injury. DISCHARGE DIAGNOSES: 1. Acute hypoglycemia with noninsulin dependent diabetes mellitus or acute on chronic alcohol abuse with dependence. 2. Acute severe pulmonary edema with ascites secondary to acute on chronic alcohol usage, with dependence. 3. Morbid obesity with body mass index greater than 40 with excessive caloric intake. 4. Hypertensive heart disease with diastolic congestive heart failure. 5. Noninsulin dependent type 2 diabetes with chronic kidney disease, stage IV. 6. Acute dyspnea with exertion with chronic kidney disease stage IV. 7. Chronic atrial fibrillation on anticoagulation therapy Coumadin. 8. Supratherapeutic INR, on Coumadin with alcohol abuse, with dependence. CONSULTATIONS: None. PROCEDURES: 1. CHEST X-RAY, impression shows small right pleural effusion, right lower lobe opacities which may be secondary to atelectasis or superimposed airspace disease. 2. Retroperitoneal ultrasound impression shows no bilateral hydronephrosis, no obstruction. HOSPITAL COURSE AND TREATMENT: The patient is a 71-year-old gentleman who looks older than his stated age with a significant history for hypertension, pulmonary edema, ascites, chronic alcohol usage, morbid obesity, diabetes mellitus type 2, non-insulin controlled, atrial fibrillation, hypertension, hyperlipidemia, chronic kidney disease stage IV. He presented to the ER with a blood sugar of 17, brought in by EMS. EMS gave him 1 amp of D50, sugar improved while in the ER to greater than 150. The patient does take glipizide at home and he had been ill recently and had not been following his diabetic diet. The patient has had similar symptoms that had happened in the past and he had been taking metformin as well. Primary care provider had stopped his metformin; however, he still continued to take glipizide. The patient was on Coumadin for atrial fibrillation and was found to have a Coumadin level 4.2 upon admission in the ER. The patient does have a history of chronic kidney disease stage III. However, presentation today shows significant acute kidney injury with a creatinine of 4.2. INR 4.5 and significant dehydration and hyperkalemia. The patient was admitted for further evaluation for acute kidney injury. The patient was given diabetic diet and Accu-Cheks before meals and at bedtime, sliding scale insulin aggressive to control blood sugars. He was started on a banana bag and IV fluids for hydration. The patient's kidney function did improve from 4.2 to 2.1 on the day of discharge. PTT and INR elevated at the time of admission with an INR of 4.2, Coumadin withheld and on the day of discharge Coumadin had come to within normal limits between 2 and 3 at 2.5. Coumadin had been held during admission. The patient was also found to be anemic with a vitamin B12 deficiency anemia. Iron studies were performed. The patient was found to have a low B12 level and was given a B12 injection. The patient also takes digoxin which continued; however, the patient did run a low heart rate on admission and which digoxin was held at that time. Digoxin level was done and showed 1.1. The patient was given Kayexalate for his elevated potassium or hyperkalemia. Potassium level decreased to 5.1 day of discharge. The patient was also placed on CIWA protocol for his chronic alcohol usage, and for withdrawal Ativan was given for withdrawal symptoms. The patient was also counseled on substance abuse and stopping of drinking. He continued on blood pressure medications for pulmonary hypertension. He was given atenolol, lisinopril and Lasix were held due to the acute kidney injury. Lipid profile was done and continued on Lipitor. For the patient's hypothyroidism he continued on Synthroid and TSH, thyroid panel was within normal limits. The patient does have an underlying history of gout. He did continue on allopurinol. On day of discharge, the patient was able to restart back on Coumadin, Lasix, all home medications as prescribed. The patient was reluctant to stay another day, even though he was counseled on the importance of hydration and compliance with his medication and not drinking. The patient understood he is not to have alcohol while he is on anticoagulant therapy and with diabetes. Hospitalist team did speak to the patient about staying 1 more additional night for additional hydration since his creatinine and potassium levels were still slightly elevated. The patient refused to stay and wanted to go home. Reluctantly the patient was to be discharged with strict followup with primary care and Cardiology within the next 1-3 days. The patient verbally understood these instructions that were given. He stated that he would call first thing in the morning to make an appointment with his forecast analyst along with his primary care provider. At the time of discharge his vital signs were stable, heart rate of 50, temperature 36.4, respirations 18, pulse oximetry 95% on room air, blood pressure 122/62. The patient was told to start back on home medication, hold the potassium until further evaluation by his primary care provider. The patient verbally understood these instructions. MEDICATIONS AT TIME OF DISCHARGE: 1. Allopurinol 300 mg tablet daily. 2. Atenolol 100 mg tablet daily. 3. Coumadin 2.5 p.o. Tuesday, , Tuesday and Tuesday. 4. Coumadin 5 Tuesday, Tuesday, Tuesday. 5. Cytomel 5 mcg daily. 6. Digoxin 250 mcg p.o. daily. 7. Lasix 80 mg tablet. 8. Lipitor 40 mg p.o. at night. 9. Lisinopril 5 mg daily. 10. Synthroid 50 mcg daily. PHYSICAL EXAMINATION: CONSTITUTIONAL: The patient is alert, in no acute distress. EYES: Pupils are equal, round and react to light and accommodation. Conjunctivae and sclerae was nonicteric, not injected. ENT: Nares are patent. No nasal discharge. Oropharynx. No masses, exudates or lesions. Mucous membranes were moist. NECK: Supple. No thyromegaly. CARDIOVASCULAR: No gallops. S1, S2 noted. Mild peripheral edema to bilateral upper and lower extremities. PSYCHIATRIC: Behavior was appropriate. Pleasant mood, cooperative. GASTROINTESTINAL: Abdomen was obese, distended with ascites noted, otherwise no CVA tenderness. No masses palpated. MUSCULOSKELETAL: No cyanosis. Pulses are palpable. The patient has full range of motion with upper and lower extremities with mild difficulty. GENITOURINARY: No CVA tenderness. No masses palpated. No bladder distention. HEMATOLOGIC: No active bleeding. The patient is hemodynamically stable. LYMPHATICS: No cervical, axillary, supraclavicular lymphadenopathy is noted. NEUROLOGIC: The patient was alert, GCS 15. Cranial nerves 2 through 7 grossly intact. Sensory is intact. SKIN: Warm, dry, intact. Normal turgor. No evidence of rash, lesions, or cellulitis. INSTRUCTIONS FOR DISCHARGE: 1. Activity as tolerated. Please continue to hydrate yourself before going out with walking or working out. Please continue to exercise daily, 20 minutes of walking is sufficient. 2. Diet. He was to continue on diabetic low carbohydrate diet, no alcohol, 8 glasses of water a day, if not more. Continue to follow a heart healthy diet. Low fat, low calorie. 3. Instructions for followup: The patient verbally understood he is to followup with Cardiology within 1 week and with his primary care provider within 1-3 days of discharge from hospital. He is high risk for worsening comorbidities and will require additional workup and management by both his forecast analyst and primary care provider. This could not have been stressed even more with this patient. The patient may it quite clear to hospitalist staff that he was going home regardless of what the numbers of his blood work showed and what his kidney function was. The patient was reluctantly discharged today again with strict instructions for followup. The patient verbally understood. He is to go home with family. Vital signs are stable at the time of discharge. Time spent on discharge summary, education and assessment was 50 minutes. STATUS: THE PATIENT DID REMAIN A FULL CODE STATUS. JOB #: [id number] [facility] JOB #:[id number] [facility]
== END 2016-09-14 16:30 | disposition home or self-care (01) | DRG 682 ==
LOC: ED 22:08 → MS 09-13 00:07 → OBSVTOIN 09-13 08:38 → MS 09-13 14:14
PROVIDERS: ADMIT Specialist; ATTEND Nurse Practitioner
DX: N17.9 Acute kidney failure, unspecified (principal); J81.0 Acute pulmonary edema; F10.288 Alcohol dependence with other alcohol-induced disorder; I12.9 Hypertensive chronic kidney disease with stage 1 through stage 4 chronic kidney disease, or unspecified chronic kidney disease; N18.9 Chronic kidney disease, unspecified; Z68.41 Body mass index [BMI] 40.0-44.9, adult; R18.8 Other ascites; D64.9 Anemia, unspecified; E78.5 Hyperlipidemia, unspecified; I50.30 Unspecified diastolic (congestive) heart failure; F10.229 Alcohol dependence with intoxication, unspecified; E86.0 Dehydration; Y90.3 Blood alcohol level of 60-79 mg/100 ml; E87.5 Hyperkalemia; E66.01 Morbid (severe) obesity due to excess calories; Z68.39 Body mass index [BMI] 39.0-39.9, adult; E11.649 Type 2 diabetes mellitus with hypoglycemia without coma; E11.22 Type 2 diabetes mellitus with diabetic chronic kidney disease; N18.4 Chronic kidney disease, stage 4 (severe); I11.0 Hypertensive heart disease with heart failure; I48.2 Chronic atrial fibrillation; D51.9 Vitamin B12 deficiency anemia, unspecified; I27.2 Other secondary pulmonary hypertension; E03.9 Hypothyroidism, unspecified; M10.9 Gout, unspecified; Z79.899 Other long term (current) drug therapy; Z79.84 Long term (current) use of oral hypoglycemic drugs; Z79.01 Long term (current) use of anticoagulants
CPT/HCPCS: 36415; 71020; 76770; 80048; 80053; 80061; 80162; 80320; 81001; 81003; 82270; 82553; 82607; 82746; 83036; 83540; 83690; 83735; 83880; 84100; 84132; 84439; 84443; 84466; 84481; 85025; 85610; 87086; 93005; 93306; 99284

== ENCOUNTER 2021-07-04 00:32 | Outpatient (CLI) | payer MEDICARE, BC | END 2021-07-04 00:33 | disposition left against medical advice (07) | LOC: EMS 00:32 | DX: S00.81XA Abrasion of other part of head, initial encounter (principal); W18.30XA Fall on same level, unspecified, initial encounter; Y93.01 Activity, walking, marching and hiking; Y92.008 Other place in unspecified non-institutional (private) residence as the place of occurrence of the external cause; Z79.01 Long term (current) use of anticoagulants; Z72.89 Other problems related to lifestyle ==